=== PATIENT | male | born 1980 | race Caucasian/White ===

== ENCOUNTER 2016-09-28 12:21 | Emergency (ER) | payer OTHER ==
--- NOTE | 2016-09-28 13:49 | ED ---
HPI Febrile Illness - HPI Summary HPI Summary: Pt here w/ concern for possible Lyme infection. He found a tick on the shaft of his penis 10 days ago - believes it was attached for > 12 hours but less than 48 hour. Thinks it was a little engorged. Removed completely with tick removal device - no EM rash. Admits he developed swollen LN's in his groin and fever/ chills past 2 days along with nightsweats, generalized myalgias, headache. No recent illness nor sx of URI, UTI, GI d/o, wound, etc. Denies paresthesias, weakness, chest pain, palpitations, rash anywhere. Reports he's in the outdoors a good bit but does perform regular tick checks. No recent sick contacts. Was seen immediately after tick removal and offered prophylaxis or wait and watch approach - he chose the latter. - History of Current Complaint Chief Complaint: EDGeneral Time Seen by Provider: 09/28/16 12:47 Hx Obtained From: Patient Pain Intensity: 5 - Allergy/Home Medications Allergies/Adverse Reactions: Allergies Allergy/AdvReac Type Severity Reaction Status Date / Time No Known Allergies Allergy Verified 12/21/12 10:15 PMH/Surg Hx/FS Hx/Imm Hx Previously Healthy: Yes Endocrine/Hematology History: Denies: Hx Anticoagulant Therapy, Hx Diabetes, Hx Thyroid Disease, Autoimmune Disease Cardiovascular History: Denies: Hx Hypertension, Hx Pacemaker/ICD, Hx Peripheral Vascular Disease Respiratory History: Denies: Hx Asthma, Hx Chronic Obstructive Pulmonary Disease (COPD) History: Denies: Hx Renal Disease Musculoskeletal History: Denies: Hx Arthritis, Hx Osteoporosis Sensory History: Denies: Hx Cataracts, Hx Contacts or Glasses, Hx Glaucoma, Hx Hearing Aid Opthamlomology History: Denies: Hx Cataracts, Hx Contacts or Glasses, Hx Glaucoma Neurological History: Denies: Hx Dementia, Hx Seizures Psychiatric History: Denies: Hx Anxiety, Hx Depression, Hx Panic Disorder, Hx Substance Abuse Infectious Disease History: No Infectious Disease History: Denies: Hx Hepatitis, Hx Human Immunodeficiency Virus (HIV), Traveled Outside the [place] in Last 30 Days - Social History 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 Negative: Weakness, Paresthesia, Numbness Psychological: Normal All Other Systems Reviewed And Are Negative: Yes Physical Exam Triage Information Reviewed: Yes Vital Signs On Initial Exam: Initial Vitals Temp Pulse Resp BP Pulse Ox 99.2 F 65 20 137/91 98 09/28/16 12:23 09/28/16 12:23 09/28/16 12:23 09/28/16 12:23 09/28/16 12:23 Vital Signs Reviewed: Yes Appearance: Positive: Well-Appearing, No Pain Distress, Well-Nourished Skin: Positive: Warm, Dry - no rash over body or at site of tick bite Head/Face: Positive: Normal Head/Face Inspection Eyes: Positive: Normal, EOMI ENT: Positive: Hearing grossly normal, Pharynx normal Neck: Positive: Supple, Nontender, No Lymphadenopathy Respiratory/Lung Sounds: Positive: Clear to Auscultation, Breath Sounds Present. Negative: Rales, Rhonchi, Wheezes Cardiovascular: Positive: Normal, RRR, Pulses are Symmetrical in both Upper and Lower Extremities. Negative: Murmur, Rub Abdomen Description: Positive: Nontender, No Organomegaly, Soft Bowel Sounds: Positive: Present Male Genital Exam: Positive: normal genitalia, inguinal tenderness - B/L enlarged LN's - well defined, mobile, tender Lt > Rt Musculoskeletal: Positive: Normal, Strength/ROM Intact - no joint edema or erythema Neurological: Positive: Normal, Sensory/Motor Intact, Alert, Oriented to Person Place, Time, CN Intact II-III Psychiatric: Positive: Normal Diagnostics - Vital Signs Vital Signs Temp Pulse Resp BP Pulse Ox 09/28/16 12:38 98.7 F 65 18 137/91 98 09/28/16 12:23 99.2 F 65 20 137/91 98 - Laboratory Lab Statement: Any lab studies that have been ordered have been reviewed, and results considered in the medical decision making process. Course/Dx - Course Course Of Treatment: Discussed course of potential Lyme infection as he is w/o other specific sx to indicate definitive infection (ie. ST, dysuria, etc). After long discussion of options, we decided to draw initial Lyme blood work here as these could be sx from recent bite or from a previous bite, therefore antibodies may be present. Will start doxycycline for a 2 week trial to start and have him f/u w/ PCP for further evaluation of illness and to review lab results. If positive, he may be switched to a longer course of doxycycline however we chose 14 days as he would like to err on a more conservative therapy approach to reduce risk of GI kellen disruption. He will avoid sun exposure and return to ED w/ danger s/sx. Also advised to monitor for other symptoms in the event this develops into a more obvious infection (ie. again, UTI, cough, etc). - Diagnoses Provider Diagnoses: Lymphadenopathy, inguinal Discharge - Discharge Plan Condition: Stable Disposition: HOME Prescriptions: DOXYcycline CAP(*) [DOXYcycline 100MG CAP(*)] 100 mg PO BID #28 cap Patient Education Materials: Lyme Disease (ED), Tick Bite (ED) Referrals: Guilherme Olivier [Primary Care Provider] - Additional Instructions: Follow-up with PCP before completing doxycycline - call today to schedule an appointment. *if you develop severe headache, intractable fever despite acetaminophen/ ibuprofen, chest pain, shortness of breath, return to ED
[2016-09-28 14:16] VITALS: BP 123/87
[2016-09-29 16:35] LABS: Lyme Disease IgG Ab WB Negative (Negative)
== END 2016-09-28 14:05 | disposition home or self-care (01) ==
LOC: ED 12:21
DX: R59.1 Generalized enlarged lymph nodes (principal); R51 Headache
CPT/HCPCS: 86617; 99282

== ENCOUNTER 2018-11-01 15:12 | Emergency (ER) | payer OTHER ==
--- NOTE | 2018-11-01 15:27 | ED ---
Head Injury - HPI Summary HPI Summary: A 38 y/o male presents to [facility] with a chief complaint of headache. 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 He says that he had a headache when he was working two days ago. He claims that his headache started in the back of his head and is now diffuse, 4/10, achy. He reports some nausea and loss of fine motor in his right hand, but denies vomiting, blurred vision or vertigo. He denies any PMHx, FHx of CVA or brain bleeds. - History Of Current Complaint Chief Complaint: EDHeadInjury Stated Complaint: ABNORMAL CT SCAN PER PT Time Seen by Provider: 11/01/18 15:24 Hx Obtained From: Patient Mechanism Of Injury: Other - Brain CT shows Onset/Duration: Started Days Ago - JESUS had a gradual onset, Still Present Onset of Pain: Prior to Arrival Severity Currently: Moderate Severity Initially: Moderate Pain Intensity: 4 Pain Scale Used: 0-10 Numeric Location of Head Injury: Other: - diffuse headache Location: Diffuse Character: Aching Aggravating Factor(s): Other: - nothing Alleviating Factor(s): Other: - nothing Associated Signs And Symptoms: Negative - blurred vision, vomiting, fever, Nausea - Allergies/Home Medications Allergies/Adverse Reactions: Allergies Allergy/AdvReac Type Severity Reaction Status Date / Time No Known Allergies Allergy Verified 08/10/17 11:55 Home Medications: Home Medications NK [No Home Medications Reported] 11/01/18 [History Confirmed 11/01/18] PMH/Surg Hx/FS Hx/Imm Hx Endocrine/Hematology History: Denies: Hx Anticoagulant Therapy, Hx Diabetes, Hx Thyroid Disease Cardiovascular History: Denies: Hx Hypertension, Hx Pacemaker/ICD, Hx Peripheral Vascular Disease Respiratory History: Denies: Hx Asthma, Hx Chronic Obstructive Pulmonary Disease (COPD) History: Denies: Hx Renal Disease Musculoskeletal History: Denies: Hx Arthritis, Hx Osteoporosis Sensory History: Denies: Hx Cataracts, Hx Contacts or Glasses, Hx Glaucoma, Hx Hearing Aid Opthamlomology History: Denies: Hx Cataracts, Hx Contacts or Glasses, Hx Glaucoma Neurological History: Denies: Hx Dementia, Hx Seizures Psychiatric History: Denies: Hx Anxiety, Hx Depression, Hx Panic Disorder, Hx Substance Abuse - Surgical History Surgery Procedure, Year, and Place: ILIAC ARTERY - ANGIOPLASTY - [place]CR[place] PATCH Infectious Disease History: No Infectious Disease History: Denies: Hx Hepatitis, Hx Human Immunodeficiency Virus (HIV), Traveled Outside the [place] in Last 30 Days - Family History Known Family History: Positive: Other - negative: CVA or brain bleeds - Social History Alcohol Use: Rare Hx Substance Use: No Substance Use Type: Reports: None Hx Tobacco Use: No Smoking Status (MU): Never Smoked Tobacco Review of Systems Negative: Fever Negative: Blurred Vision Positive: Nausea. Negative: Vomiting Neurological: Other - negative: vertigo Positive: Headache, Numbness - right fingers All Other Systems Reviewed And Are Negative: Yes Physical Exam - Summary Physical Exam Summary: Constitutional: Well-developed, Well-nourished, Alert. (-) Distressed Skin: Warm, Dry HENT: Normocephalic; Atraumatic Eyes: Conjunctiva normal Neck: Musculoskeletal ROM normal neck. (-) JVD, (-) Nuchal rigidity Cardio: Rhythm regular, bradycardic, Heart sounds normal; Intact distal pulses; Radial pulses are 2+ and symmetric. (-) Murmur Pulmonary/Chest wall: Effort normal. (-) Respiratory distress, (-) Wheezes, (-) Rales Abd: Soft. (-) Tenderness, (-) Distension, (-) Guarding, (-) Rebound Musculoskeletal: (-) Edema Lymph: (-) Cervical adenopathy Neuro: Alert, PERRL, Oriented x3, Strength normal, Cranial nerves II-XII are grossly intact. SILT, Strength 5/5 BUE and BLE, (-) Dysmetria, (-) Nystagmus, ambulates w steady gait. Psych: Mood and affect Normal Triage Information Reviewed: Yes Vital Signs On Initial Exam: Initial Vitals Temp Pulse Resp BP Pulse Ox 99.2 F 50 18 144/89 98 11/01/18 15:14 11/01/18 15:14 11/01/18 15:14 11/01/18 15:14 11/01/18 15:14 Vital Signs Reviewed: Yes Diagnostics - Vital Signs Vital Signs Temp Pulse Resp BP Pulse Ox 11/01/18 15:14 99.2 F 50 18 144/89 98 - Laboratory Lab Statement: Any lab studies that have been ordered have been reviewed, and results considered in the medical decision making process. Head Injury Course/Dx Course Of Treatment: 38-year-old male presents with a headache found to have a cerebellar IPH on CT. Neuro exam normal although patient does report decreased fine motor in the right hand. 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 He can get his CTA there. - Diagnoses Provider Diagnoses: Intraparenchymal hemorrhage of brain, Headache Discharge - Sign-Out/Discharge Documenting (check all that apply): Patient Departure - transfer Patient Received Moderate/Deep Sedation with Procedure: No - Discharge Plan Condition: Fair Disposition: TRANS HIGHER LVL OF CARE FAC Referrals: Guilherme Olivier [Primary Care Provider] - - Billing Disposition and Condition Condition: FAIR Disposition: Trans Higher Lvl of Care Fac - Attestation Statements Document Initiated by Scribe: Yes Documenting Scribe: Matias Caldwell Provider For Whom Scribe is Documenting (Include Credential): Fausto Amador MD Scribe Attestation: IMatias, scribed for Fausto Amador MD on 11/01/18 at 1623. Scribe Documentation Reviewed: Yes Provider Attestation: The documentation as recorded by the Matias caballero accurately reflects the service I personally performed and the decisions made by , Fausto Amador MD Status of Scribe Document: Viewed Consult Consult: At 14:45 Discussed case with transfer center. Discussed case with Dr. Eugene Chacon, neurologist at [facility], who accepted the patient for transfer.
[2018-11-01 17:25] VITALS: BP 0/0
== END 2018-11-01 17:24 | disposition short-term general hospital (02) ==
LOC: ED 15:12
DX: I61.8 Other nontraumatic intracerebral hemorrhage (principal)
CPT/HCPCS: 99283